=== PATIENT | female | born 1955 | race Hispanic/Latino ===

== ENCOUNTER 2017-12-04 10:38 | Outpatient (CLI) | payer OTHER ==
--- NOTE | 2017-12-04 11:02 | XRay Report ---
XRAY RIGHT RIBS 2 VIEWS: 12/04/17 10:38:00 CLINICAL: A fall in which he hit the bathtub. FINDINGS: Mildly displaced fractures and deformity of right posterior ribs 9, 10 and 11. No callus. No underlying bone lesions. The right lung is normally expanded and clear. The left lung is normally expanded and clear. Normal heart and pulmonary vessels. IMPRESSION: Acute closed traumatic mildly displaced fractures of right posterior ribs 9, 10 and 11. No pneumothorax.
== END 2017-12-04 10:39 | disposition home or self-care (01) ==
LOC: SPVIMAG 10:38
PROVIDERS: ATTEND Orthopaedic Surgery Sports Medicine
DX: S22.41XA Multiple fractures of ribs, right side, initial encounter for closed fracture (principal); W18.2XXA Fall in (into) shower or empty bathtub, initial encounter; Y93.89 Activity, other specified; Y92.89 Other specified places as the place of occurrence of the external cause; Y99.8 Other external cause status